=== PATIENT | male | born 1960 | race Caucasian/White ===

== ENCOUNTER 2017-06-12 14:50 | Emergency (ER) | payer OTHER ==
[2017-06-12 15:26] VITALS: BMI 20.8
[2017-06-12] MEDS ORDERED: Sodium Chloride 0.9% 1,000 ML IV ONE (16:01)
[2017-06-12] MEDS ORDERED: Sodium Chloride 0.9% 1,000 ML ONE (16:33)
[2017-06-12 16:34] LABS: BASO # 0.1 K/uL (0.0-0.2); BASO % 1.1 % (0.0-2.0); EOS # 0.3 K/uL (0.0-0.7); EOS % 5.7 % (0.0-4.0); HEMOGLOBIN 13.6 g/dL (12.0-18.0); LYMPH # 1.4 K/uL (1.0-4.3); LYMPH % 26.5 % (20.0-40.0); MEAN CELL VOLUME 89.8 fL (80.0-94.0); MEAN CORPUSCULAR HEMOGLOBIN 30.5 pg (27.0-31.0); MEAN PLATELET VOLUME 7.2 fL (7.2-11.7); MONO # 0.5 K/uL (0.0-0.8); MONO % 8.7 % (0.0-10.0); NRBC % 0.1 % (0.0-2.0); RBC 4.47 Mil/uL (4.40-5.90); RED CELL DISTRIBUTION WIDTH 14.1 % (11.5-14.5); WHITE BLOOD COUNT 5.2 K/uL (4.8-10.8)
[2017-06-12 16:41] LABS: ALBUMIN 3.8 g/dL (3.5-5.0)
[2017-06-12 16:44] LABS: ALB/GLOB RATIO 1.5 (1.0-2.1); AST/SGOT 24 U/L (17-59); GFR AFRICAN-AMERICAN > 60; GFR NON-AFRICAN AMERICAN > 60
[2017-06-12 16:45] LABS: ALT/SGPT 36 U/L (21-72); BLOOD UREA NITROGEN 11 mg/dL (9-20); CALCIUM 8.7 mg/dl (8.6-10.4); LIPASE 25 U/L (23-300)
[2017-06-12 17:20] LABS: URINE AMORPHOUS SEDIMENT FEW /ul (<OCC); URINE BACTERIA RARE (<OCC); URINE BILIRUBIN NEGATIVE (NEGATIVE); URINE BLOOD NEGATIVE (NEGATIVE); URINE CLARITY Hazy (Clear); URINE COLOR Yellow (YELLOW); URINE GLUCOSE (UA) NORMAL (Normal); URINE LEUKOCYTE ESTERASE NEG Leu/uL (Negative); URINE NITRATE NEGATIVE (NEGATIVE); URINE PROTEIN NEGATIVE (NEGATIVE); URINE UROBILINOGEN NORMAL mg/dL (0.2-1.0)
--- NOTE | 2017-06-12 17:27 | C.PDOC ---
History Of Present Illness 56 year old male presents to the ED with complaints of feeling of "inflammation " in his abdomen that began one week ago. Pt denies pain. Notes he has the same symptoms intermittely for 10 years. Relieved with Zantac. Patient states 10 years ago he had an endoscopy performed and was diagnosed with "inflammation" . Has not follow up with a GI doctor. Patient denies fever, nausea, vomiting, or diarrhea. Time Seen by Provider: 06/12/17 15:43 Chief Complaint (Nursing): Abdominal Pain History Per: Patient History/Exam Limitations: no limitations Onset/Duration Of Symptoms: Days (1 week ) Current Symptoms Are (Timing): Still Present Location Of Pain/Discomfort: Diffuse Radiation Of Pain To:: None Quality Of Discomfort: Other (Inflammation sensation ) Associated Symptoms: denies: Fever, Chills, Nausea, Vomiting, Diarrhea Recent travel outside of the [place]: No Additional History Per: Prior Records Past Medical History Reviewed: Historical Data, Nursing Documentation, Vital Signs Vital Signs: Last Vital Signs Temp 97.9 F 06/12/17 17:50 Pulse 77 06/12/17 17:50 Resp 18 06/12/17 17:50 BP 117/72 06/12/17 17:50 Pulse Ox 99 06/12/17 17:50 - Medical History PMH: Gastritis Family History: States: Unknown Family Hx - Social History Hx Tobacco Use: Yes Hx Alcohol Use: No (DENIED) Hx Substance Use: No (DENIED) - Immunization History Hx Tetanus Toxoid Vaccination: No Hx Influenza Vaccination: No Hx Pneumococcal Vaccination: No Review Of Systems Constitutional: Negative for: Fever, Chills Cardiovascular: Negative for: Chest Pain Respiratory: Negative for: Shortness of Breath Gastrointestinal: Positive for: Abdominal Pain (Diffuse inflammation sensation ) . Negative for: Nausea, Vomiting, Diarrhea Physical Exam - Physical Exam Appears: Non-toxic, No Acute Distress Skin: Warm, Dry Head: Atraumatic, Normacephalic Eye(s): bilateral: Normal Inspection, PERRL, EOMI Nose: Normal Oral Mucosa: Moist Neck: Normal ROM, Supple Chest: Symmetrical, No Deformity Cardiovascular: Rhythm Regular Respiratory: Normal Breath Sounds, No Rhonchi, No Wheezing Gastrointestinal/Abdominal: Soft, Tenderness (mild diffuse tenderness), No Distention, No Guarding, No Rebound Neurological/Psych: Oriented x3, Normal Speech ED Course And Treatment - Laboratory Results Result Diagrams: 06/12/17 16:25 06/12/17 16:25 O2 Sat by Pulse Oximetry: 100 (room air ) Progress Note: Patient is resting comfortably, abdomen remains soft, and patient is tolerating PO. Discussed with patient the importance of following up with gI and possible endo. Instructed to return if symtpoms persist or worsen. Pt is asymptomatic currently and pain is intermittent for years therefore no further work up indicated at the time. Abd soft, no tender, tolerating po, afebrile. Patient feels comfortable going home. business management intern used to ensure understanding. Disposition - Disposition Referrals: [facility] at [facility] [Outside] Flex Garcia MD [Staff Provider] - Disposition: HOME/ ROUTINE Disposition Time: 17:24 Condition: STABLE Additional Instructions: Vaya a moss mdico o la clnica en 2-5 vela sin falta, para mas evaluacin. Starks los medicamentos panda indicado. Volver a la juan miguel de emergencia en cualquier momento si los sntomas persisten o empeoran. Prescriptions: Ranitidine HCl [Zantac] 150 mg PO BID #20 tablet Instructions: Acute Abdominal Pain (ED) Forms: [employer] (Tajik) Print Language: MARTINIQUAIS - Clinical Impression Clinical Impression: Abdominal pain - Scribe Statement The provider has reviewed the documentation as recorded by the Scribe Lu Mendoza All medical record entries made by the Scribe were at my direction and personally dictated by me. I have reviewed the chart and agree that the record accurately reflects my personal performance of the history, physical exam, medical decision making, and the department course for this patient. I have also personally directed, reviewed, and agree with the discharge instructions and disposition.
[2017-06-12 17:52] VITALS: BP 117/72; PULSE 77; RESP 18; TEMP 97.9
--- NOTE | 2017-06-12 18:33 | RAD ---
PROCEDURE: Radiographs of the chest and abdomen (obstructive series) HISTORY: pain COMPARISON: No prior. TECHNIQUE: AP radiograph of the chest, with upright and supine radiographs of the abdomen. FINDINGS: CHEST: Lungs: Clear. Cardiovascular: Normal size heart. No pulmonary vascular congestion. Pleura: No pleural fluid. No pneumothorax. Other findings: None. ABDOMEN AND PELVIS: Bowel: Unremarkable bowel gas pattern. No evidence of mechanical obstruction. Free air: None. Bones: Unremarkable. Other findings: None. IMPRESSION: Unremarkable radiographs of chest and abdomen. No evidence of mechanical bowel obstruction.
[2017-06-12 18:42] VITALS: O2SAT 100
== END 2017-06-12 17:52 | disposition home or self-care (01) ==
LOC: C.ER 14:50
DX: R10.84 Generalized abdominal pain (principal)
CPT/HCPCS: 74022; 80053; 81001; 83690; 85025; 96361; 96374; 96375; 99284; C9113; J1885; J7040

== ENCOUNTER 2017-11-28 14:39 | Emergency (ER) | payer OTHER ==
[2017-11-28 14:39] VITALS: BMI 20.8
[2017-11-28 15:06] VITALS: RESP 20
[2017-11-28 16:01] LABS: URINE BILIRUBIN NEGATIVE (NEGATIVE); URINE BLOOD NEGATIVE (NEGATIVE); URINE CLARITY Clear (Clear); URINE COLOR Yellow (YELLOW); URINE GLUCOSE (UA) NORMAL (Normal); URINE LEUKOCYTE ESTERASE TRACE Leu/uL (Negative); URINE PROTEIN NEGATIVE (NEGATIVE); URINE UROBILINOGEN NORMAL mg/dL (0.2-1.0)
--- NOTE | 2017-11-28 16:26 | C.PDOC ---
History Of Present Illness Pt is a 56 y/o male with past medical history of gastritis and hernia presents to the ED complaining of left knee inflammation x 1 week. Patient also complaints of frequent urination (about every 20 minutes) and inflammation of stomach x 2 days. Denies any further medical complaints. Pt states that he has had upper endoscopy of his stomach in the past. PMD: None . Time Seen by Provider: 11/28/17 15:19 Chief Complaint (Nursing): Lower Extremity Problem/Injury History Per: Patient History/Exam Limitations: no limitations Onset/Duration Of Symptoms: Other (x1 week) Current Symptoms Are (Timing): Still Present Past Medical History Reviewed: Historical Data, Nursing Documentation, Vital Signs Vital Signs: Last Vital Signs Temp 98.1 F 11/28/17 16:42 Pulse 76 11/28/17 16:42 Resp 20 11/28/17 16:42 BP 105/70 11/28/17 16:42 Pulse Ox 97 12/13/17 20:49 - Medical History PMH: Gastritis Other PMH: hernia Family History: States: Other Other Family History: Cancer - Social History Hx Tobacco Use: Yes Hx Alcohol Use: No (DENIED) Hx Substance Use: No (DENIED) - Immunization History Hx Tetanus Toxoid Vaccination: No Hx Influenza Vaccination: No Hx Pneumococcal Vaccination: No Review Of Systems Except As Marked, All Systems Reviewed And Found Negative. (As per HPI, otherwise negative) Cardiovascular: Negative for: Chest Pain Respiratory: Negative for: Shortness of Breath Gastrointestinal: Positive for: Abdominal Pain (Inflammation of stomach). Negative for: Vomiting Genitourinary: Positive for: Frequency Musculoskeletal: Positive for: Other (Left knee inflammation) Physical Exam - Physical Exam Appears: Well, No Acute Distress Skin: Normal Color, Warm, Dry Head: Atraumatic, Normacephalic Eye(s): bilateral: Normal Inspection Ear(s): Bilateral: Normal Nose: Normal Tongue: Normal Appearing Lips: Normal Appearing Neck: Normal, Supple Cardiovascular: Rhythm Regular, No Murmur Respiratory: Normal Breath Sounds, No Accessory Muscle Use Gastrointestinal/Abdominal: Normal Exam, Soft, No Tenderness, No Guarding, No Rebound Back: Normal Inspection Extremity: Normal ROM (Left knee), No Tenderness (Left knee), No Deformity, No Swelling (No swelling or erythema noted on left knee) Neurological/Psych: Oriented x3, Normal Motor, Normal Sensation ED Course And Treatment O2 Sat by Pulse Oximetry: 97 (RA) Pulse Ox Interpretation: Normal Medical Decision Making Medical Decision Making: Time: 15:30 Initial Impression: UTI, arthritis on left knee Initial Plan: Pepcid 20mg PO Toradol 30mg IM Urine culture Progress Note: UA with leukocytes; will d/c on abx Scribe Attestation: Documented by Bernardino Da Silva acting as a scribe for Miguel Goins MD. Scribe Attestation: All medical record entries made by the Scribe were at my direction and personally dictated by me. I have reviewed the chart and agree that the record accurately reflects my personal performance of the history, physical exam, medical decision making, and the department course for this patient. I have also personally directed, reviewed, and agree with the discharge instructions and disposition. Disposition - Disposition Referrals: [facility] at [facility] [Outside] Disposition: HOME/ ROUTINE Disposition Time: 16:23 Condition: STABLE Additional Instructions: Mr. Murphy, thank you for letting us take care of you today. Return to the ER if your symptoms worsen, or if any problems. Take the medication listed below as prescribed. It is important that you are re-evaluated by the physician. Please call the phone number listed below to make an appointment at our [facility]. Prescriptions: Acetaminophen [Tylenol 325mg tab] 3 tab PO Q6 PRN #60 tab PRN Reason: Pain, Moderate (4-7) Cephalexin [cephalexin] 1 tab PO BID #14 cap Ranitidine HCl [Zantac] 1 tab PO BID #30 tablet Instructions: Gastritis (ED), Urinary Tract Infection in Men (ED), Knee Pain ( ED) Forms: Gen Discharge Inst Upper Sorbian, Work Excuse Print Language: NAMIBIAN - POA Present On Arrival: None - Clinical Impression Clinical Impression: Gastritis, Knee pain, left, UTI (urinary tract infection)
[2017-11-28 16:43] VITALS: BP 105/70; PULSE 76; TEMP 98.1
[2017-12-13 20:45] VITALS: O2SAT 97
== END 2017-11-28 16:43 | disposition home or self-care (01) ==
LOC: C.ER 14:39
DX: K29.70 Gastritis, unspecified, without bleeding (principal); N39.0 Urinary tract infection, site not specified; M25.562 Pain in left knee
CPT/HCPCS: 81001; 87086; 96372; 99285; J1885

== ENCOUNTER 2018-01-18 13:31 | Emergency (ER) | payer OTHER ==
[2018-01-18 13:51] VITALS: RESP 18; BMI 20.2
[2018-01-18 15:55] LABS: BASO # 0.1 K/uL (0.0-0.2); BASO % 1.3 % (0.0-2.0); EOS # 0.4 K/uL (0.0-0.7); HEMOGLOBIN 13.9 g/dL (12.0-18.0); LYMPH # 1.6 K/uL (1.0-4.3); LYMPH % 35.8 % (20.0-40.0); MEAN CELL VOLUME 90.1 fL (80.0-94.0); MEAN CORPUSCULAR HEMOGLOBIN 30.3 pg (27.0-31.0); MEAN CORPUSCULAR HGB CONC 33.6 g/dL (33.0-37.0); MEAN PLATELET VOLUME 7.4 fL (7.2-11.7); MONO # 0.4 K/uL (0.0-0.8); NEUT # 1.9 K/uL (1.8-7.0); NEUT % 43.9 % (50.0-75.0); RBC 4.6 Mil/uL (4.40-5.90); RED CELL DISTRIBUTION WIDTH 14.6 % (11.5-14.5); WHITE BLOOD COUNT 4.4 K/uL (4.8-10.8)
[2018-01-18 16:05] LABS: ALB/GLOB RATIO 1.4 (1.0-2.1); ALBUMIN 4.1 g/dL (3.5-5.0); ALT/SGPT 32 U/L (21-72); AMYLASE 87 U/L (30-110); AST/SGOT 27 U/L (17-59); BLOOD UREA NITROGEN 13 mg/dL (9-20); CALCIUM 9.3 mg/dl (8.6-10.4); GFR AFRICAN-AMERICAN > 60; GFR NON-AFRICAN AMERICAN > 60
--- NOTE | 2018-01-18 16:23 | RAD ---
PROCEDURE: Left Knee Radiographs. HISTORY: Pain. COMPARISON: None. FINDINGS: BONES: Normal. No fracture. JOINTS: Normal. No osteoarthritis. JOINT EFFUSION: None. OTHER FINDINGS: None. IMPRESSION: Normal radiographs of the left knee.
[2018-01-18 16:36] LABS: HEPATITIS B SURFACE AG Negative (NEGATIVE)
[2018-01-18 16:37] LABS: URINE BILIRUBIN NEGATIVE (NEGATIVE); URINE BLOOD NEGATIVE (NEGATIVE); URINE CLARITY Clear (Clear); URINE COLOR Colorless (YELLOW); URINE GLUCOSE (UA) NORMAL (Normal); URINE LEUKOCYTE ESTERASE TRACE Leu/uL (Negative); URINE PROTEIN NEGATIVE (NEGATIVE); URINE UROBILINOGEN NORMAL mg/dL (0.2-1.0)
[2018-01-18 16:42] LABS: HEPATITIS A IGM NEGATIVE (NEGATIVE); HEPATITIS B CORE AB NEGATIVE (NEGATIVE)
[2018-01-18 17:04] LABS: HEPATITIS C ANTIBODY NEGATIVE (NEGATIVE)
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
[2018-01-18 18:00] VITALS: BP 95/67; PULSE 60; TEMP 97.9
[2018-01-18 18:18] VITALS: O2SAT 99
== END 2018-01-18 18:00 | disposition home or self-care (01) ==
LOC: C.ER 13:31
DX: M25.562 Pain in left knee (principal); S69.90XA Unspecified injury of unspecified wrist, hand and finger(s), initial encounter; W46.0XXA Contact with hypodermic needle, initial encounter; Z72.0 Tobacco use

== ENCOUNTER 2018-04-22 10:44 | Emergency (ER) | payer OTHER ==
[2018-04-22 10:44] VITALS: BMI 20.2
[2018-04-22 10:51] VITALS: BP 113/67; PULSE 76; RESP 16; TEMP 98.3; O2SAT 97
[2018-04-22] MEDS ORDERED: Silver Sulfadiazine 1% Cream (20 gm) ONE (10:58)
[2018-04-22] MEDS ORDERED: Silver Sulfadiazine 1% Cream (20 gm) TOP STA (11:09)
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
== END 2018-04-22 11:41 | disposition home or self-care (01) ==
LOC: C.ER 10:44
DX: T22.20XA Burn of second degree of shoulder and upper limb, except wrist and hand, unspecified site, initial encounter (principal); X19.XXXA Contact with other heat and hot substances, initial encounter; Y92.89 Other specified places as the place of occurrence of the external cause; Y99.0 Civilian activity done for income or pay

== ENCOUNTER 2019-03-13 11:37 | Emergency (ER) | payer OTHER ==
--- NOTE | 2019-03-13 11:59 | C.PDOC ---
History Of Present Illness 58 yo male come in for evaluation of left knee pain developed for past few days. Pt reports, pain is localized over left knee, " worse at night, when im trying to sleep". Pt admits, previous sx in past, was seen here due to same few times. Pt denies known recent trauma or injury, fever, chills, knee swelling or redness, denies calf pain CP, SOB, dyspnea, denies deformity, weakness, sensory or vascular deficits to Left leg. Ambulatory with stable gait. Time Seen by Provider: 03/13/19 11:51 Chief Complaint (Nursing): Lower Extremity Problem/Injury History Per: Patient Past Medical History Reviewed: Historical Data, Nursing Documentation, Vital Signs Vital Signs: Last Vital Signs Temp 98.4 F 03/13/19 11:54 Pulse 91 H 03/13/19 11:54 Resp 18 03/13/19 11:54 BP 105/70 03/13/19 11:54 Pulse Ox 98 03/13/19 11:54 Primary Care Provider: FAMILY PROVIDER,NO - Medical History PMH: Arthritis, Gastritis Family History: States: Unknown Family Hx - Social History Hx Tobacco Use: Yes Hx Alcohol Use: No (DENIED) Hx Substance Use: No (DENIED) - Immunization History Hx Tetanus Toxoid Vaccination: No Hx Influenza Vaccination: No Hx Pneumococcal Vaccination: No Review Of Systems Except As Marked, All Systems Reviewed And Found Negative. Constitutional: Negative for: Fever, Chills Cardiovascular: Negative for: Chest Pain, Palpitations Respiratory: Negative for: Shortness of Breath Musculoskeletal: Positive for: Other (Left knee pain) Skin: Negative for: Rash, Lesions Neurological: Negative for: Weakness, Numbness, Altered Mental Status, Headache, Dizziness Physical Exam - Physical Exam Appears: Well, Non-toxic, No Acute Distress Skin: Normal Color, Warm, No Rash, No Ecchymosis Head: Normacephalic Extremity: Normal ROM (left knee without pain or difficulty), Tenderness (mild anterior aspect Left knee. NO palpable deformity, no erythema, no edema, no neurovascular deficits), No Pedal Edema, No Calf Tenderness (left), Capillary Refill (less than 2sec to left foot), No Deformity, No Swelling Pulses: Left Dorsalis Pedis: Normal DTR: Knee (L): 2+ Neurological/Psych: Oriented x3, Normal Speech ED Course And Treatment O2 Sat by Pulse Oximetry: 98 - Other Rad Left knee X-Ray: Interpreted by Me, Viewed By Me Interpretation: (+) mod DJD, no acute fx oir dislocation Progress Note: On re-eval, pt is afebrile, hemodynamicaly stable. Ambulatory with stable gait. Left knee: FAROM, no ne urovascular deficits, no edema, no erythema, no left calf tenderness. Imaging review and c/w chr mod DJD, no acute fx or dislocation. Prateek wrap applied to left knee. Pt advised and ref to F/u with Ortho in 2-3 days for re-eavl. return if any new changes Disposition Counseled Patient/Family Regarding: Studies Performed, Diagnosis, Need For Followup, Rx Given - Disposition Referrals: [facility] at [facility] [Outside] Disposition: HOME/ ROUTINE Disposition Time: 12:10 Condition: STABLE Additional Instructions: Prateek wrap during the day, while ambulating Take pain medication as need as prescribed FOLLOW UP WITH ORTHOPEDIST AT [facility] FOR FURTHER EVALUATION AND TREATMENT return to ED if any worsening or new changes Prescriptions: Prednisone [Deltasone] 20 mg PO DAILY #3 tablet traMADol [Ultram] 50 mg PO BID #5 tab Instructions: Chronic Knee Pain, Osteoarthritis Forms: [employer] (Lithuanian) Print Language: CZECH - Clinical Impression Clinical Impression: Arthralgia of knee, left
[2019-03-13 12:02] VITALS: BP 105/70; PULSE 91; RESP 18; TEMP 98.4; O2SAT 98
[2019-03-13 12:03] VITALS: BMI 22.7
--- NOTE | 2019-03-13 14:11 | RAD ---
Date of service: 03/13/2019 PROCEDURE: Left Knee Radiographs. HISTORY: Pain. COMPARISON: None. TECHNIQUE: 2 views obtained. FINDINGS: BONES: Normal. No fracture. JOINTS: Mild osteoarthritic changes. JOINT EFFUSION: None. OTHER FINDINGS: None. IMPRESSION: No evidence of acute fracture or dislocation. Mild osteoarthritis.
== END 2019-03-13 12:30 | disposition home or self-care (01) ==
LOC: C.ER 11:37
DX: M25.562 Pain in left knee (principal); M19.90 Unspecified osteoarthritis, unspecified site